=== PATIENT | female | born 1995 | race Caucasian/White ===

== ENCOUNTER 2018-04-21 07:30 | Emergency (ER) | payer BC, OTHER ==
[2018-04-21 07:53] VITALS: BP 109/64
[2018-04-21] MEDS ORDERED: NACL 0.9% 1000 ML 1,000 ML IV ONE ×2 (07:53→11:03)
[2018-04-21 08:18] LABS: Basophils % (Auto) 0.3 % (0.0-1.8); Eosinophils # (Auto) 0.1 K/mm3 (0.0-0.4); Eosinophils % (Auto) 0.9 % (0.0-4.3); Hematocrit 38.9 % (30.3-42.9); Hemoglobin 12.9 gm/dl (10.1-14.3); Lymphocytes # (Auto) 1.5 K/mm3 (1.2-5.4); Mean Corpuscular HGB Conc 33 % (30-34); Mean Corpuscular Volume 82 fl (79-97); Monocytes # (Auto) 0.5 K/mm3 (0.0-0.8); Monocytes % (Auto) 4.5 % (0.0-7.3); Platelet Count 427 K/mm3 (140-440); Red Blood Count 4.76 M/mm3 (3.65-5.03); Red Cell Distribution Width 13.6 % (13.2-15.2)
[2018-04-21 09:06] LABS: Alanine Aminotransferase 7 units/L (7-56); Albumin 4.5 g/dL (3.9-5); BUN/Creatinine Ratio 16; Blood Urea Nitrogen 11 mg/dL (7-17); Calcium 9.2 mg/dL (8.4-10.2); Hemolysis Index 8
[2018-04-21] MEDS ORDERED: ZOFRAN IV ONE (10:22)
--- NOTE | 2018-04-21 10:22 | Emergency Department Report ---
ED Abdominal Pain HPI - General Chief Complaint: Abdominal Pain Stated Complaint: STOMACH PAIN/VOMITING/DIARRHEA Source: patient Mode of arrival: Wheelchair Limitations: No Limitations - History of Present Illness Initial Comments: Patient is a 22-year-old female who comes in with an overnight history of nausea and vomiting. She thinks she might ate something bad last night. He should also endorses dysuria and frequency. Last menstrual cycle was just last month. On arrival she is nontoxic, taking by mouth and afebrile. -: Sudden, days(s) (1) Associated Symptoms: nausea, vomiting - Related Data LMP (females 10-50): 1 month Previous Rx's Medication Instructions Recorded Last Taken Type Ondansetron [Zofran Odt] 4 mg PO Q8HR PRN #10 tab.rapdis 04/21/18 Unknown Rx Sulfamethoxazole/Trimethoprim 1 each PO BID #6 tablet 04/21/18 Unknown Rx [Bactrim Ds Tablet] Allergies Allergy/AdvReac Type Severity Reaction Status Date / Time No Known Allergies Allergy Unverified 08/01/15 13:08 ED Review of Systems ROS: Stated complaint: STOMACH PAIN/VOMITING/DIARRHEA Other details as noted in HPI Comment: All other systems reviewed and negative Constitutional: denies: see HPI Eyes: denies: as per HPI ENT: denies: ear pain Respiratory: denies: cough Cardiovascular: denies: palpitations Endocrine: denies: excessive sweating Gastrointestinal: as per HPI, nausea, vomiting. denies: abdominal pain Genitourinary: as per HPI, urgency, dysuria, frequency Skin: denies: as per HPI, lesions Psychiatric: denies: anxiety Hematological/Lymphatic: denies: easy bleeding ED Past Medical Hx - Past Medical History Previous Medical History?: No Hx Congestive Heart Failure: No Hx Diabetes: No Hx Renal Disease: No Hx Arthritis: No Hx Kidney Stones: No Hx COPD: No Hx HIV: No - Surgical History Past Surgical History?: No - Family History Family history: no significant - Social History Smoking Status: Never Smoker Substance Use Type: None - Medications Home Medications: Home Medications Medication Instructions Recorded Confirmed Last Taken Type Ondansetron [Zofran Odt] 4 mg PO Q8HR PRN #10 tab.rapdis 04/21/18 Unknown Rx Sulfamethoxazole/Trimethoprim 1 each PO BID #6 tablet 04/21/18 Unknown Rx [Bactrim Ds Tablet] ED Physical Exam - General Limitations: No Limitations General appearance: alert, in no apparent distress - Head Head exam: Present: atraumatic (it has) - Eye Eye exam: Present: normal appearance, PERRL - ENT ENT exam: Present: normal exam, mucous membranes moist - Neck Neck exam: Present: normal inspection - Respiratory Respiratory exam: Present: normal lung sounds bilaterally - Cardiovascular Cardiovascular Exam: Present: regular rate - GI/Abdominal GI/Abdominal exam: Present: soft, normal bowel sounds. Absent: distended, tenderness, guarding, rebound, diminished bowel sounds - Rectal Rectal exam: Present: deferred - Extremities Exam Extremities exam: Present: normal inspection, full ROM - Back Exam Back exam: Present: normal inspection, full ROM - Neurological Exam Neurological exam: Present: alert, oriented X3 - Psychiatric Psychiatric exam: Present: normal affect, normal mood - Skin Skin exam: Present: warm, dry, intact ED Course Vital Signs 04/21/18 07:51 Temperature 98.0 F Pulse Rate 94 H Respiratory 18 Rate Blood Pressure 109/64 O2 Sat by Pulse 100 Oximetry - Reevaluation(s) Reevaluation #1: 06/04/18 NO CVA TENDERNESS ED Medical Decision Making - Lab Data Result diagrams: 04/21/18 08:05 04/21/18 08:05 - Medical Decision Making Labs 04/21/18 04/21/18 04/21/18 08:05 08:05 10:35 WBC 10.2 RBC 4.76 Hgb 12.9 Hct 38.9 MCV 82 MCH 27 L MCHC 33 RDW 13.6 Plt Count 427 Lymph % (Auto) 15.0 [place] % (Auto) 4.5 Eos % (Auto) 0.9 Baso % (Auto) 0.3 Lymph # 1.5 [place] # 0.5 Eos # 0.1 Baso # 0.0 Seg Neutrophils % 79.3 H Seg Neutrophils # 8.1 H Sodium 140 Potassium 3.4 L Chloride 100.9 Carbon Dioxide 26 Anion Gap 17 BUN 11 Creatinine 0.7 Estimated GFR > 60 BUN/Creatinine Ratio 16 Glucose 146 H Calcium 9.2 Total Bilirubin 0.40 AST 12 ALT 7 Alkaline Phosphatase 56 Total Protein 8.2 Albumin 4.5 Albumin/Globulin Ratio 1.2 Urine Color Anni Urine Turbidity Cloudy Urine pH 5.0 Ur Specific [place] 1.026 Urine Protein 30 mg/dl Urine Glucose (UA) Neg Urine Ketones Tr Urine Blood Mod Urine Nitrite Pos Ur Reducing Substances Not Reportable Urine Bilirubin Neg Urine Ictotest Not Reportable Urine Urobilinogen 2.0 Ur Leukocyte Esterase Mod Urine WBC (Auto) 60.0 H Urine RBC (Auto) 8.0 U Epithel Cells (Auto) 5.0 Urine Bacteria (Auto) 2+ Urine Mucus 3+ Urine HCG, Qual 04/21/18 10:37 WBC RBC Hgb Hct MCV MCH MCHC RDW Plt Count Lymph % (Auto) [place] % (Auto) Eos % (Auto) Baso % (Auto) Lymph # [place] # Eos # Baso # Seg Neutrophils % Seg Neutrophils # Sodium Potassium Chloride Carbon Dioxide Anion Gap BUN Creatinine Estimated GFR BUN/Creatinine Ratio Glucose Calcium Total Bilirubin AST ALT Alkaline Phosphatase Total Protein Albumin Albumin/Globulin Ratio Urine Color Urine Turbidity Urine pH Ur Specific [place] Urine Protein Urine Glucose (UA) Urine Ketones Urine Blood Urine Nitrite Ur Reducing Substances Urine Bilirubin Urine Ictotest Urine Urobilinogen Ur Leukocyte Esterase Urine WBC (Auto) Urine RBC (Auto) U Epithel Cells (Auto) Urine Bacteria (Auto) Urine Mucus Urine HCG, Qual Negative Vital Signs 04/21/18 07:51 Temperature 98.0 F Pulse Rate 94 H Respiratory 18 Rate Blood Pressure 109/64 O2 Sat by Pulse 100 Oximetry Critical care attestation.: If time is entered above; I have spent that time in minutes in the direct care of this critically ill patient, excluding procedure time. ED Disposition Clinical Impression: Hypokalemia, UTI (urinary tract infection) Disposition: - TO HOME OR SELFCARE Is pt being admited?: No Does the pt Need Aspirin: No Condition: Stable Instructions: Urinary Tract Infection in Women (ED) Additional Instructions: EAT FOODS HIGH IN POTASSIUM HYDRATE WELL WITH WATER MOTRIN OR TYLENOL FOR PAIN OR FEVER MEDS ORDERED TODAY DIET TOLERATED ACTIVITY TOLERATED THIS IS A SEVERE INFECTION SEE PCP WHEN YOU ARE DONE WITH MEDS TO BE SURE IT GOES AWAY Prescriptions: Sulfamethoxazole/Trimethoprim [Bactrim Ds Tablet] 1 each PO BID #6 tablet Ondansetron [Zofran Odt] 4 mg PO Q8HR PRN #10 tab.rapdis PRN Reason: Vomiting Referrals: BETSY PERRY MD [Primary Care Provider] - 3-5 Days Forms: Work/School Release Form(ED) Time of Disposition: 12:04
[2018-04-21 10:49] LABS: Bacteria,Urine 2+ /HPF (Negative); Mucus,Urine 3+ /HPF
[2018-04-21] MEDS ORDERED: K-DUR PO ONE (10:49)
[2018-04-21 10:50] LABS: Bilirubin,Urine NEG (Negative); Blood,Urine MOD (Negative); Color,Urine Amber (Yellow)
[2018-04-21 10:52] LABS: HCG Qualitative,Urine Negative (Negative)
[2018-04-21] MEDS ORDERED: ROCEPHIN/NS 1 GM/50 ML 1 GM/50 ML BAG IV ONE (11:07)
== END 2018-04-21 12:43 | disposition home or self-care (01) ==
LOC: ED 07:30
DX: N39.0 Urinary tract infection, site not specified (principal); E87.6 Hypokalemia
CPT/HCPCS: 36415; 80053; 81001; 81025; 85025; 96361; 96365; 96375; 99283; J0696; J2405; J7030